=== PATIENT | male | born 1950 | race Caucasian/White ===

== ENCOUNTER 2017-08-02 19:21 | Emergency (ER) | payer MEDICARE, OTHER ==
[2017-08-02] MEDS: IBUPROFEN 600 MG TAB PO (20:08)
[2017-08-02] MEDS: LIDOCAINE 2% (MDV) 20 ML INJ INJ (20:16)
[2017-08-02] MEDS: MUPIROCIN 2% 15 GM CR TOP (21:36)
[2017-08-02] MEDS: NICARDipine HCL 30 MG CAPSULE PO (21:47)
== END 2017-08-02 22:30 | disposition home or self-care (01) ==
LOC: FTE 22:30
DX: L03.012 Cellulitis of left finger (principal); I10 Essential (primary) hypertension; E11.9 Type 2 diabetes mellitus without complications
CPT/HCPCS: 10060; 73140; 99283-25